=== PATIENT | male | born 1945 | race Asian ===

== ENCOUNTER 2018-05-25 09:26 | Day surgery (SDC) | payer OTHER ==
[2018-05-21 10:48] VITALS: BMI 28.3
[~2018-05-25 09:26] MED LIST: TOBRA 0.3%/DEXAMETH 0.1% OPHTHALMIC SUSP 2.5 ML BTL TP ONE
[2018-05-25] MEDS ORDERED: TROPICAMIDE 1% OPHTH SOLN 15 ML BOTTLE OD ONE ×3 (10:10→10:30)
[2018-05-25] MEDS ORDERED: DICLOFENAC SODIUM 0.1% OPHTHALMIC 2.5ML BOTTLE OD ONE ×3 (10:10→10:30)
[2018-05-25] MEDS ORDERED: MOXIFLOXACIN HCL 0.5% OPHTHALMIC 3 ML BOTTLE OD ONE ×3 (10:10→10:30)
[2018-05-25] MEDS ORDERED: PHENYLEPHRINE 2.5% OPHTH SOLN 15 ML BOTTLE OD ONE ×3 (10:10→10:30)
[2018-05-25] MEDS ORDERED: CYCLOPENTOLATE HCL 1% OPHTH SOLN 2 ML BOTTLE OD ONE ×3 (10:10→10:30)
[2018-05-25] MEDS ORDERED: TETRACAINE 0.5% OPHTH SOLN 2 ML BOTTLE OD ONE (12:30)
[2018-05-25] MEDS ORDERED: POVIDONE-IODINE 5% OPHTHALMIC PREP 30 ML SOLUTION OD ONE (12:39)
[2018-05-25] MEDS ORDERED: BSS (NA/CA/MG/K) BALANCED SALT SOLUTION OPHTH SOLN 15 ML BOTTLE OD ONE (12:45)
[2018-05-25] MEDS ORDERED: CHONDROITIN SU A/HYALUR SOD 1 KIT IO ONE (12:45)
[2018-05-25] MEDS ORDERED: LIDOCAINE HCL 1% PRESERVATIVE FREE - 30ML VIAL IO ONE (12:45)
[2018-05-25] MEDS ORDERED: PHENYLEPHRINE/KETOROLAC 4 ML VIAL IO ONE (12:59)
[2018-05-25] MEDS ORDERED: TOBRA 0.3%/DEXAMETH 0.1% OPHTHALMIC SUSP 2.5 ML BTL TP ONE (13:28)
[2018-05-25 14:20] VITALS: BP 134/81; PULSE 80; TEMP 98.4
[2018-05-25] MEDS ORDERED: CHONDROITIN SU A/HYALUR SOD 1 KIT ONE (15:24)
--- NOTE | 2018-05-25 18:52 | OP ---
DATE OF OPERATION: 05/25/2018 SPECIALIST: Tanisha Ernandez MD PREOPERATIVE DIAGNOSIS: Cataract, right eye. POSTOPERATIVE DIAGNOSIS: Cataract, right eye. ANESTHESIA: Local. PROCEDURE: Phacoemulsification of cataract, right eye, with in-the-bag placement of AU00T0 23 diopter intraocular lens using Omidria. DESCRIPTION OF PROCEDURE: Patient was brought to the operating room, and the right eye was prepped and draped in the usual sterile fashion for ophthalmic surgery after placing tetracaine eye drops. The microscope was swung into position. A 2.75 keratome was used to enter the anterior chamber at approximately 10 o'clock position with an accessory port made at 2 o'clock position after filling the anterior chamber with 0.5 mL of preservative-free lidocaine and viscoelastic. Cystotome and Utrata forceps were then used to perform a continuous circular capsulorrhexis. BSS was used to perform hydrodissection and hydrodelineation of the lens nucleus which was rotated freely. Midline nucleus was found to be 5+ dense, brown, and with no cortical material. Phacoemulsification was carried out carefully in a iykjkj-[id number] technique. IA was used to remove minimal cortical material, and the capsular bag was found to be intact, which was filled with Amvisc which was injected AU00T0 23 diopter IOL and dialed into position using the Sinskey hook. BSS was used to hydrate the corneal lip wounds after viscoelastic was removed using the irrigation system. The corneal lip wounds were found to be intact, and a contact lens soaked in TobraDex solution for approximately 10 minutes was then draped in the eye. The eye was patched and shielded. Patient was transferred to recovery room in a stable condition, having tolerated the procedure well. TANISHA ERNANDEZ M.D. [id number]
== END 2018-05-25 14:20 | disposition home or self-care (01) ==
LOC: JASU-SURG 09:26
PROVIDERS: ATTEND Ophthalmology
PROC: 08RJ3JZ Replacement of Right Lens with Synthetic Substitute, Percutaneous Approach (ICD-10-PCS; principal; 2018-05-25 11:00)
DX: H26.9 Unspecified cataract (principal)
CPT/HCPCS: C9447